=== PATIENT | female | born 1990 | race Caucasian/White ===

== ENCOUNTER 2024-01-23 08:53 | Emergency (ER) | payer OTHER, SELFPAY ==
[2024-01-23 09:01] VITALS: BP 138/85; PULSE 82; RESP 18; TEMP 36.9; O2SAT 100
[2024-01-23 09:04] VITALS: BP 138/85; PULSE 82; RESP 18; TEMP 36.9; O2SAT 100
--- NOTE | 2024-01-23 09:31 | ED.DENTAL ---
HPI - Dental/Oral General Chief complaint: Dental/Oral Stated complaint: Tooth Pain Time Seen by Provider: 01/23/24 09:31 Source: patient Mode of arrival: ambulatory Limitations: no limitations History of Present Illness HPI Narrative: 34-year-old female presents with complaint of right upper dental pain. Patient reports that she had filling in tooth but it fell out. States she needs tooth pulled but unable to afford it. No significant facial swelling noted. All systems reviewed and negative except as noted above. Related Data Allergies Allergy/AdvReac Type Severity Reaction Status Date / Time Penicillins Allergy Unknown Verified 01/23/24 09:03 Review of Systems Review of Systems: CONSTITUTIONAL: Denies fever, chills, or sweats. EYES: Denies visual changes, redness, or discharge. ENT: Denies rhinorrhea, congestion, sore throat, or otalgia. Reports right upper dental pain. CARDIOVASCULAR: Denies chest pain, palpitations, or edema. RESPIRATORY: Denies cough or dyspnea. GASTROINTESTINAL: Denies abdominal pain, nausea, vomiting, or diarrhea. GENITOURINARY: Denies dysuria or hematuria. SKIN: Denies rash or itching. MUSCULOSKELETAL: Denies back pain, joint pain, or myalgia. NEUROLOGIC: Denies headache, numbness, or weakness. PSYCHIATRIC: Denies anxiety or depression. All other systems reviewed are negative, except as documented in HPI. PMFSH Comments At time of signature, agree with nursing past medical, surgical, social and family history. There is no relevant family history pertinent to the presenting complaint. Exam Narrative: GENERAL: This is a well-nourished, well-developed patient, in no apparent distress. HEAD: normocephalic, atraumatic. EYES: PERRL. Sclera clear/white. Vision is grossly intact. EARS: External ears normal NOSE: External nose normal MOUTH: tooth #2 decayed with some of tooth broken off NECK: Neck supple, non-tender without lymphadenopathy, masses or thyromegaly. CARDIOVASCULAR: Regular rate and rhythm without murmurs, gallops, or rubs. RESPIRATORY: Clear to auscultation. Breath sounds equal bilaterally. No wheezes, rales, or rhonchi. SKIN: warm, Dry, intact with no suspicious lesions or rash, good texture and turgor. NEURO: awake, alert, and oriented to person, place and time. There were no obvious focal neurologic abnormalities. EXTREMITIES: No joint tenderness, effusion, or edema noted. Course Course Level of Care: Express Care Visit Vital Signs Vital signs: Vital Signs Temperature 36.9 C 01/23/24 09:01 Pulse Rate 82 01/23/24 09:01 Respiratory Rate 18 01/23/24 09:01 Blood Pressure 138/85 01/23/24 09:01 Pulse Oximetry 100 01/23/24 09:01 Oxygen Delivery Room Air 01/23/24 09:01 Temperature 36.9 C 01/23/24 09:04 Pulse Rate 82 01/23/24 09:04 Respiratory Rate 18 01/23/24 09:04 Blood Pressure 138/85 01/23/24 09:04 Pulse Oximetry 100 01/23/24 09:04 Oxygen Delivery Room Air 01/23/24 09:04 Reviewed MDM - Dental/Oral MDM Narrative Medical decision making narrative: Patient is aware of diagnosis, understands and agrees to treatment plan. Anticipatory guidance given. Patient agrees to follow-up as directed and is aware of reasons to seek care at the emergency department. Portions of this record may have been created with voice recognition software Discharge Plan Discharge Clinical Impression: Toothache Patient Disposition: Home, Self-Care Condition: Stable Instructions: Antibiotic Form, Toothache (ED) Additional Instructions: TAKE ANTIBIOTIC PRESCRIBED UNTIL GONE. TAKE TYLENOL EVERY 6-8 HOURS NEEDED FOR PAIN. Follow-up With a dentist at next available appointment. Prescriptions: New clindamycin HCl 300 mg capsule 300 mg PO QID 10 Days Qty: 40 0RF ibuprofen 800 mg tablet 800 mg PO TID PRN (Reason: pain) Qty: 30 0RF Follow-up/Referrals: PHYSICIAN,ARTIFICIAL LOG MACHINE OPERATOR [Primary Care Provider] - Time of D
== END 2024-01-23 09:42 | disposition home or self-care (01) ==
PROVIDERS: Emergency Provider Nurse Practitioner Family
DX: K08.89 Other specified disorders of teeth and supporting structures (principal)
CPT/HCPCS: 99213; G0463